=== PATIENT | female | born 1950 | race Caucasian/White ===

== ENCOUNTER 2016-08-31 15:43 | Inpatient (IN) | payer OTHER ==
[~2016-08-31] VITALS: Ht 160 cm; Wt 52.2 kg
--- NOTE | ~2016-08-31 | D ---
[facility] [place] [address] DISCHARGE SUMMARY Name: DANIELLE GOMEZ Room #: 410-P [facility] IN M.R.#: [id number] Admission: 08/31/16 Attend Phys: Juan Marin Discharge: 09/03/16 Date of : 48 Report #: [id number] THIS REPORT FOR: //name// CC: Mohinder De Leonanika Marlena DATE OF SERVICE: 09/03/2016 FINAL DIAGNOSES: 1. Acute cholecystitis. 2. Chronic low back pain. HOSPITAL COURSE: The patient was admitted with some diffuse GI symptoms. Abdominal ultrasound revealed normal appearing kidneys, but gallstone within the gallbladder and some wall thickening. Dr. Christian saw her in consultation and felt she warranted laparoscopic cholecystectomy due to acute cholecystitis. Blood cultures were negative and urinalysis was unremarkable and therefore, culture was not obtained. She remained afebrile during the course of her stay with a normal white count. She tolerated the procedure without incident. Postoperatively, she had a little bit of pain, but it was hard to discriminate if this was related to her chronic pain syndrome; otherwise, she had no other interval complication. She was held another day to monitor pain symptoms. Her blood pressures were elevated during her stay and she refused Toprol. We discussed this and she blamed her high blood pressure readings on her pain and said this was very similar to when she presented to her pain clinic office, told her to follow up in the office for monitoring. DISPOSITION: To be discharged to home with diet and activity as tolerated. No new medications, but she will follow up with Dr. Cornelius in 2 weeks. <ELECTRONICALLY SIGNED> By: Gatito Mcallister MD 09/05/16 1240 [id number] Gatito Mcallister MD /nt
--- NOTE | ~2016-08-31 | O ---
[facility] [place] [address] OPERATIVE REPORT Name: DANIELLE GOMEZ Room #: 410-P [facility] IN M.R.#: [id number] Admission: 08/31/16 Attend Phys: Juan Marin Discharge: 09/03/16 Date of : 48 Report #: [id number] THIS REPORT FOR: //name// CC: Suleiman Cornelius Stany Marlena DATE OF SERVICE: 09/01/2016 PREOPERATIVE DIAGNOSES: Cholecystitis with cholelithiasis. POSTOPERATIVE DIAGNOSES: Cholecystitis with cholelithiasis. PROCEDURES PERFORMED: Laparoscopic cholecystectomy with cholangiogram. SURGEON: Davion Christian MD ANESTHESIA: General anesthesia. COMPLICATIONS: None. ESTIMATED BLOOD LOSS: 5 mL. FINDINGS: The patient did have numerous stones. The common bile duct is dilated, but no filling defect on the intraoperative cholangiogram. PROCEDURE NOTE: With the patient under anesthesia, abdomen was prepped and draped in sterile fashion. The patient received preop Levaquin for antibiotic. Abdomen was prepped and draped in sterile fashion. Time-out was performed. A centimeter half curvilinear incision was made infraumbilically. Fascia was then identified. Fascia was grasped with hemostat, lifted anteriorly. The patient's fascia was then opened under visualization. 0 Vicryl suture was placed on the fascia for retraction. Veress needle was then placed through the peritoneum. Abdominal cavity was insufflated with CO2. After creating pneumoperitoneum pressure of 15, 11-mm trocar was placed through the peritoneum under visualization, no harm to underlying tissue. The gallbladder is not contracted, somewhat distended. Two 5-mm trocars were placed in the right upper quadrant and a 5-mm trocar was placed in right epigastrium. Gallbladder was lifted over the liver. Because of the patient's body habitus, the common duct is fairly well seen. Cystic duct was identified underneath the peritoneum. The peritoneum was free. The cystic duct was isolated. A clip was placed in junction of cystic duct to the gallbladder, opening was made in the cystic duct. Cholangiogram catheter was placed. Fluoroscopic cholangiogram was obtained. Common bile duct filled out well. No filling defect. Cholangiogram catheter identified the cystic duct. No harm to common duct. The catheter was then removed. The proximal cystic duct was then clipped times 2 and then divided. [address] [address] OPERATIVE REPORT Name: DANIELLE GOMEZ Room #: 410-P [facility] IN M.R.#: [id number] Admission: 08/31/16 Attend Phys: Juan Marin Discharge: 09/03/16 Date of : 48 Report #: [id number] Cystic artery was then identified. This is . The cystic artery was clipped times 2 proximally, 1 distally and then divided. Gallbladder was freed from the liver bed without difficulty. Gallbladder was placed in a specimen bag. The bag was partially extracted. The gallbladder was identified, opened up. The gallbladder contained numerous stones. The bile suctioned out. Stones were then evacuated. After breaking up multiple stones, the gallbladder came along with the bag. The 11-mm trocar was then replaced. Liver bed was checked, hemostasis excellent. No harm to the underlying tissue underneath the umbilicus. CO2 was evacuated and trocars were removed. The infraumbilical fascia defect was closed with [id number] 0 Vicryl times 2. Skin was irrigated. Skin was closed with 5-0 PDS. Steri-Strip, Band-Aids applied. The patient was taken to recovery room. <ELECTRONICALLY SIGNED> By: Davion Christian MD 09/08/16 1713 [id number] [id number] Davion Christian MD /nt
--- NOTE | ~2016-08-31 | HC ---
[facility] [place] [address] CONSULTATION Name: DANIELLE GOMEZ Room #: [facility] IN M.R.#: [id number] Admission: 08/31/16 Attend Phys: Juan Marin Discharge: 09/03/16 Date of : 48 Report #: [id number] THIS REPORT FOR: //name// CC: Suleiman Pappas Marlena DATE OF SERVICE: 09/01/2016 REASON FOR CONSULTATION: Abdominal pain, gallstone. HISTORY OF PRESENT ILLNESS: The patient is a 66-year-old who has been admitted from Dr. Cornelius's office yesterday. The patient recently underwent treatment for a urinary tract infection, was on antibiotics. Towards the end of the treatment, the patient felt sick, Monday. She had low energy. Monday and Monday, she started to have shakiness and dizziness. She is complaining of upper abdominal pain that radiates to her back. She has had vomiting. The patient does have previous history of abdominal symptom like this. She remembers eating ribs that caused her to have pain. She has greasy food intolerance. It feels like there is a rock sitting in her epigastrium, has bloating, increased gas. The patient had an ultrasound yesterday, which did show multiple gallstones. The gallbladder appears somewhat contracted with the wall thickening. Bile duct was felt to be a normal size. The patient had a normal white count, liver function is normal. There is family history of gallbladder disease with her mom and 2 children. Two daughter's have the gallbladder removed. PAST MEDICAL HISTORY: She has frequent urinary tract infection. She had rheumatic fever as a child, history of back injury. PAST SURGICAL HISTORY: The patient has allergy to PENICILLIN, which she was a long time ago. When she was in high school, the patient had rash. PHYSICAL EXAMINATION: GENERAL: She is thin female in no acute distress. LUNGS: Clear. HEART: Regular rhythm, no murmur or gallops. HEENT: Sclerae is nonicteric. ABDOMEN: The patient does have tenderness in right upper quadrant. No mass, guarding, rigidity or rebound. IMPRESSION: The patient is a 66-year-old with abdominal pain. She does have a longstanding history of discomfort in her abdomen, feels like a rock sitting on her epigastrium. She does take . Daughter describes a nervous type of bowel, likely this was a gallbladder. The patient has had difficulty eating barbecue ribs. The patient is recommended to have her gallbladder removed. [address] [address] CONSULTATION Name: DANIELLE GOMEZ Room #: 410-P [facility] IN M.R.#: [id number] Admission: 08/31/16 Attend Phys: Juan Marin Discharge: 09/03/16 Date of : 48 Report #: [id number] think she should feel a lot better. Her symptoms are consistent with gallbladder disease. Laparoscopic cholecystectomy was discussed. Risk of bleeding, infection and common bile duct injury was discussed. The patient understands and wishes to proceed with surgery. She will be scheduled for a later day. <ELECTRONICALLY SIGNED> By: Davion Christian MD 09/08/16 1713 2128 [id number] Davion Christian MD /nt
--- NOTE | ~2016-08-31 | S ---
[facility] [place] [address] SURGICAL PATH RPT PROCEDURE Name: DANIELLE GOMEZ Room #: 410-P [facility] IN M.R.#: [id number] Admission: 08/31/16 Date of : 48 Discharge: 09/03/16 Report #: [id number] Path Case #: [id number] PATHOLOGY REPORT COLLECTION DATE: 09/01/2016 RECEIVED DATE: 09/02/2016 SUBMITTING PHYS: Dr. Davion Christian OTHER PHYS: Dr. Mian Cornelius SPECIMEN(S) RECEIVED: A.Gallbladder * * * * * * * * * * * * FINAL DIAGNOSIS: A. "Gallbladder", cholecystectomy: - Chronic cholecystitis. - Cholelithiasis. - Lymph node with hyperplasia. (1 node) (CLW; 09/05/16) PATHOLOGIST: Matilda Aguilera M.D. REPORT ELECTRONICALLY SIGNED BY: Matilda Aguilera M.D. DATE/TIME: 09/05/2016 23:05 * * * * * * * * * * * * GROSS PATHOLOGY: Received in formalin labeled "Danielle Gomez, gallbladder," is a 7.5 x 2.2 x 1.8 cm, previously opened gallbladder with pink to mcgrath to green serosal surfaces that are smooth on one side and rough on the other. Opening the gallbladder reveals red-brown rough and sand-like mucosa and an average wall thickness of 0.3 cm. Calculi are present and no masses are noted grossly. Stock Car Driver sections from the body and fundus are submitted along with the proximal margin. Also submitted is a 1.1 x 0.5 x 0.5 cm lymph node that is bisected. The fraud representative sections and lymph node are submitted in cassette A1. (DAVID; 09/02/2016) CLINICAL HISTORY: Cholelithiasis INITIAL CPT CODE(S): A; 21234 Professional services performed by [facility] at [facility] [address] [place] [address] SURGICAL PATH RPT PROCEDURE Name: DANIELLE GOMEZ Room #: 410-P [facility] IN M.R.#: [id number] Admission: 08/31/16 Date of : 48 Discharge: 09/03/16 Report #: [id number] Path Case #: [id number] [address] [place] [address] Technical services performed by [facility] at [address] [place] [address], [facility] [address] [place] [address]. [place] [address] PHONE: [phone] DIRECTOR: Jung Hanks M.D. * * * END OF REPORT * * *
--- NOTE | ~2016-08-31 | H ---
[facility] [place] [address] HISTORY AND PHYSICAL Name: DANIELLE GOMEZ Room #: 410-P AD[facility] IN M.R.#: [id number] Admission: 08/31/16 Attend Phys: Juan Marin Discharge: Date of : 48 Report #: [id number] THIS REPORT FOR: //name// CC: Mohinder Cornelius Stananika Marlena DATE OF SERVICE: 08/31/2016 CHIEF COMPLAINT: Abdominal pain and weakness. HISTORY OF PRESENT ILLNESS: The patient is a 66-year-old female who is admitted from the office with diffuse complaints of weakness, not feeling well, and abdominal pain. She was treated for urinary tract infection due to klebsiella on culture, approximately 10 days ago or so with oral Bactrim. However, in the last 3 days, she has felt fatigued with low energy, nausea and had an episode of vomiting and loss of appetite. She has had some diffuse pain across the upper abdomen but some of this she refers to her back. She did mention Monday night while trying to eat about 30 minutes later, she had some upper abdominal pain and vomiting. She reports finishing her course of oral antibiotics. PAST MEDICAL HISTORY: Chronic low back pain, chronic hearing loss with tinnitus. PAST SURGICAL HISTORY: Appendectomy, breast surgery. FAMILY HISTORY: Noncontributory. SOCIAL HISTORY: Smokes about a half back day with [id number]-[id number]-cqlr history. Denies alcohol use. ALLERGIES: PENICILLIN. MEDICATIONS: Cymbalta 30 mg twice a day, morphine immediate release 30 mg every 4 hours as needed, fentanyl patch. She follows with the pain clinic. REVIEW OF SYSTEMS: She denies headache, chest pain, shortness of breath, dysuria, myalgias, syncope. OBJECTIVE: VITAL SIGNS: Temperature 36.3 and she has been afebrile, pulse 78, respirations 17, blood pressure 121/82, O2 sat 100% on room air. GENERAL: She is awake and alert, in no distress. HEENT: She is hard of hearing. LUNGS: Clear. HEART: Regular. ABDOMEN: Soft, normoactive bowel sounds, no palpable masses. No rebound or [facility] [address] [place] [address] HISTORY AND PHYSICAL Name: DANIELLE GOMEZ Room #: 410-P ADM IN [facility].#: [id number] Admission: 08/31/16 Attend Phys: Juan Marin Discharge: Date of : 48 Report #: [id number] guarding. EXTREMITIES: No cyanosis, clubbing or edema. NEUROLOGIC: Cranial nerves intact. Motor strength is intact. LABORATORY DATA: Urinalysis had 2+ ketones in blood, but negative nitrite, leukocyte esterase and white blood cells. White count is 10. Potassium was 3.4 on admit. Blood cultures negative overnight. Abdominal ultrasound shows normal kidneys. There is a large gallstone in the gallbladder with some wall thickening. KUB of lungs and abdomen was negative. ASSESSMENT: 1. Abdominal pain. 2. Cholelithiasis. 3. Nausea and vomiting. PLAN: Dr. Christian has been consulted to give an opinion related to the ultrasound findings. Currently, there are no signs clinically or on imaging studies to suggest pyelonephritis and she has been afebrile with essentially negative urinalysis and renal ultrasound unremarkable. Right now we will observe her off antibiotics for concern of potential side defects. If no surgery planned, we will advance her diet. <ELECTRONICALLY SIGNED> By: Gatito Mcallister MD 09/01/16 1231 1132 1209 Gatito Mcallister MD /nt
[~2016-08-31 15:43] MED LIST: BUTRANS1 EAC1 TD; CYMBALTA60 MG PO; FENTANYL PA12 MCG/H1 TRANSDERM; FENTANYL PA12 MCG/HR TP; NAPROSYN500 MG PO; NEURONTIN 400M400 M2 PO; RESTORIL30 MG PO; TYLENOL PM EX-1 EACH PO; [UNRECOGNIZED DRUG - OTHER] PO
[2016-08-31 15:55] VITALS: BP 167/90
[2016-08-31 19:17] LABS: ABSOLUTE NEUTROPHILS 7.9 thou/uL (1.4-8.2); BASOPHILS 0.6 % (0.0-2.0); EOSINOPHILS 0.5 % (0.0-3.0); HEMATOCRIT 46.3 % (37.0-47.0); HEMOGLOBIN 15.9 gm/dL (12.0-15.0); LYMPHOCYTES 16.2 % (24.0-44.0); MCH 29.6 pg (26.0-34.0); MCHC 34.3 g/dL (28.0-37.0); MCV 86.1 fL (80.0-100.0); PLATELET COUNT 251 thou/uL (150-400); POLYS 77.7 % (36.0-66.0); RBC 5.37 mil/uL (4.20-5.00); RDW 14.3 % (10.5-14.5); WBC 10.2 thou/uL (4.0-11.0)
[2016-08-31 19:22] LABS: MANUAL DIFF NO
[2016-08-31 19:38] LABS: ALBUMIN 3.8 g/dL (3.4-5.0); CREATININE 0.5 mg/dL (0.6-1.0); POTASSIUM 3.4 mmol/L (3.5-5.1); TOTAL BILIRUBIN 0.4 mg/dL (<0.1-1.0); TOTAL PROTEIN 7.5 g/dL (6.4-8.2)
[2016-08-31 19:44] VITALS: BP 166/91
[2016-08-31 22:31] LABS: URINE BILIRUBIN NEGATIVE (Negative); URINE BLOOD 2+ (Negative); URINE COLOR YELLOW; URINE GLUCOSE-RANDOM* NEGATIVE (Negative); URINE KETONES 2+ (Negative); URINE NITRITE NEGATIVE (Negative); URINE PROTEIN (DIPSTICK) NEGATIVE (Negative); URINE SPECIFIC GRAVITY 1.015 (1.003-1.035); URINE UROBILINOGEN 0.2 E.U./dl (0.2-1.0)
[2016-08-31 22:45] LABS: BACTERIA 1-9 Few /HPF (None Seen); CASTS None Seen /LPF (None Seen); CRYSTALS None Seen /LPF (None Seen); SQUAMOUS 0-3 Few /LPF (0-3); URINE RBC 0-2 Rare /HPF (0-2); URINE WBC None Seen /HPF (0-5)
[2016-09-01 03:45] VITALS: BP 154/82
[2016-09-01 08:50] VITALS: BP 121/82
[2016-09-01 08:57] VITALS: BP 121/82
[2016-09-01 12:16] LABS: BASOPHILS 0.8 % (0.0-2.0); EOSINOPHILS 1.7 % (0.0-3.0); HEMATOCRIT 45.4 % (37.0-47.0); HEMOGLOBIN 15.5 gm/dL (12.0-15.0); LYMPHOCYTES 27.7 % (24.0-44.0); MCH 29.1 pg (26.0-34.0); MCHC 34.1 g/dL (28.0-37.0); MCV 85.4 fL (80.0-100.0); MONOCYTES 6.9 % (1.0-8.0); PLATELET COUNT 281 thou/uL (150-400); POLYS 62.9 % (36.0-66.0); RBC 5.31 mil/uL (4.20-5.00); RDW 13.9 % (10.5-14.5); WBC 7.9 thou/uL (4.0-11.0)
[2016-09-01 12:17] LABS: MANUAL DIFF NO
[2016-09-01 12:24] LABS: CALCIUM 8.9 mg/dL (8.5-10.1); CREATININE 0.6 mg/dL (0.6-1.0)
[2016-09-01 12:25] LABS: POTASSIUM 4.4 mmol/L (3.5-5.1)
[2016-09-01 18:00] VITALS: BP 165/88
[2016-09-01 19:00] VITALS: BP 158/83
[2016-09-01 21:35] VITALS: BP 150/84
[2016-09-02] VITALS: BP 170/91
[2016-09-02 05:30] VITALS: BP 163/85
[2016-09-02 07:47] VITALS: BP 159/78
[2016-09-02 15:39] VITALS: BP 195/89
[2016-09-02 15:40] VITALS: BP 187/89
[2016-09-02 20:00] VITALS: BP 159/82
[2016-09-03 04:00] VITALS: BP 177/91
[2016-09-03 08:50] VITALS: BP 181/95
[2016-09-03 09:00] VITALS: BP 181/95
[2016-09-03 13:25] VITALS: BP 181/95
== END 2016-09-03 13:50 | disposition home or self-care (01) | DRG 419 ==
LOC: 4N 15:43
PROVIDERS: Internal Medicine; Internal Medicine Geriatric Medicine
PROC: BF121ZZ Fluoroscopy of Gallbladder using Low Osmolar Contrast (ICD-10-PCS; principal; 2016-09-01)
PROC: 0FT44ZZ Resection of Gallbladder, Percutaneous Endoscopic Approach (ICD-10-PCS; principal; 2016-09-01)
DX: K80.00 Calculus of gallbladder with acute cholecystitis without obstruction (principal); G89.29 Other chronic pain; M54.5 Low back pain; H91.90 Unspecified hearing loss, unspecified ear; F17.210 Nicotine dependence, cigarettes, uncomplicated; Z88.0 Allergy status to penicillin
CPT/HCPCS: 10790; 50010; 50101; 50411; 50555; 50558; 51489; 53307; 53310; 53312; 55245; 55317; 56462; 56525; 56526; 62110; 62900; 70005